=== PATIENT | male | born 1985 | race Caucasian/White ===

== ENCOUNTER 2017-03-23 23:33 | Emergency (ER) | payer MEDICAID ==
[~2017-03-23] VITALS: Ht 185.4 cm; Wt 73.6 kg
[2017-03-24 01:47] VITALS: BP 124/80
[2017-03-24] MEDS ORDERED: LIDOCAINE 1% HCL (LOCAL ANESTH.) INJ 20ML MDV ONE (02:08)
[2017-03-24] MEDS ORDERED: cefTRIAXone SOD 1,000 MG VL IM ONE (02:15)
== END 2017-03-24 02:44 | disposition home or self-care (01) ==
LOC: ER 23:35
DX: J32.9 Chronic sinusitis, unspecified (principal)
CPT/HCPCS: 71010; 96372; 99283; J0696; J2001